=== PATIENT | female | born 1970 | race Caucasian/White ===

== ENCOUNTER → 2021-08-20 13:34 | Outpatient (CLI) | payer BC, SELFPAY ==
--- NOTE | 2021-08-20 13:46 | CT_ITS ---
FINAL REPORT CLINICAL HISTORY: H/O NICOTINE DEPENDENCE, CURRENT SMOKER 2PPD X37 YEARS FINDINGS: Low-Dose Chest CT CTDI vol (mGy): 2.90 DLP (mGy-cm): 81.25 Axial images were obtained from the lung apex to the mid abdomen by computed tomography. Low-dose protocol was utilized. FINDINGS: CHEST: There is no axillary adenopathy. There is no hilar or mediastinal adenopathy. The heart is proper size. There is moderate to severe left coronary artery calcification. There is no pericardial or pleural effusion. Limited images of the upper abdomen are unremarkable. Lung window images demonstrate mild diffuse bronchial wall thickening consistent with bronchitis. There are widespread 5 mm or less bilateral pulmonary nodules that are nonspecific and favored to be inflammatory. A 5 mm nodule is seen in the right lower lobe on image 36. IMPRESSION: Lung RADS category 2S. Recommend 12 month follow-up low-dose chest CT. Modifier S: Moderate to severe left coronary artery calcification. Reviewed, Interpreted and Dictated by Alo Vitale III, MD Transcribed by Nikolay Bentley Authenticated and [facility]
== END ==
PROVIDERS: PCP Family Medicine; Visit Provider Family Medicine
DX: Z87.891 Personal history of nicotine dependence (principal); Z12.2 Encounter for screening for malignant neoplasm of respiratory organs
CPT/HCPCS: 71271

== ENCOUNTER → 2021-08-30 07:43 | Outpatient (CLI) | payer SELFPAY ==
--- NOTE | 2021-08-30 07:49 | CT_ITS ---
FINAL REPORT CLINICAL HISTORY: screening COMPARISON: 08/20/2021 FINDINGS: CT CORONARY CALCIUM SCORE W/O TECHNIQUE: Thin-section axial images were obtained through the heart and coronary arteries per CT coronary calcium score protocol. This study was performed with techniques to keep radiation doses as low as reasonably achievable (ALARA). Individualized dose reduction techniques using automated exposure control or adjustment of mA and/or kV according to the patient's size were employed. FINDINGS: On the axial images, there is calcification within the LAD, circumflex, and right coronary arteries. This gives a coronary artery calcium score of 390.41 based on the Agatston scale. This coronary artery calcium score places the patient within the 98 percentile based on age and gender. The heart size is normal. There is no pleural or pericardial effusion. Limited evaluation of the lungs reveal diffuse bronchial wall thickening consistent with bronchitis. There are several small bilateral pulmonary nodules measuring 5 mm or less, similar to the recent CT. IMPRESSION: Calcification within the LAD, circumflex, and right coronary arteries placing the patient in the 98th percentile. Reviewed, Interpreted and Dictated by Alo Vitale III, MD Transcribed by Molly Donald Authenticated and [facility]
== END ==
PROVIDERS: PCP Family Medicine; Visit Provider Family Medicine
DX: Z13.6 Encounter for screening for cardiovascular disorders (principal); E78.2 Mixed hyperlipidemia; I10 Essential (primary) hypertension; F17.210 Nicotine dependence, cigarettes, uncomplicated
CPT/HCPCS: 75571

== ENCOUNTER → 2023-01-16 07:22 | Outpatient (CLI) | payer BC, SELFPAY ==
--- NOTE | 2023-01-16 07:26 | CT_ITS ---
FINAL REPORT TECHNIQUE: Thin section axial images were obtained through the lungs using a low-dose technique per lung cancer screening protocol. Reconstruction images were obtained using the axial data. Exam was performed using dose reduction technique. CLINICAL HISTORY: H/O TOBACCO USE former smoker, quit 1 year ago 2ppd x 32 years COMPARISON: 08/20/2021 FINDINGS: CTDLvol: 2.9 DLP: 98.47 Former smoker, quit 1 year ago, 52-year-old female 64 pack year history Lungs: There is a stable left upper lobe 4 mm nodule seen in image #16. There are multiple additional bilateral scattered nodules, all stable. No new nodules are identified, and no evidence of consolidation is noted. Lymph nodes: There are stable but mildly prominent subcarinal and AP window nodes. Mediastinum: Heart size is normal. Pleura/pericardium: No pleural or pericardial effusion. Other: Coronary artery calcifications are noted, stable. IMPRESSION: No new nodules or areas of consolidation are visualized. The S designation is given for coronary artery disease. Lung RADS: 2S Recommendation: 12-month LDCT Reviewed, Interpreted and Dictated by Caitlin Gill MD Transcribed by Andria Bland Authenticated and [facility]
== END ==
PROVIDERS: PCP Family Medicine; Visit Provider Family Medicine
DX: Z87.891 Personal history of nicotine dependence (principal); Z12.2 Encounter for screening for malignant neoplasm of respiratory organs
CPT/HCPCS: 71271

== ENCOUNTER 2023-12-04 12:52 | Outpatient (CLI) | payer BC, SELFPAY ==
--- NOTE | 2023-12-04 12:57 | CT_ITS ---
FINAL REPORT CLINICAL HISTORY: HX NICOTINE former smoker, quit 2 yrs ago, smoked 1 1/2 pks per day x 33 yrs family hx of lung ca COMPARISON: 01/16/2023 FINDINGS: CTDI vol (mGy): 2.90 DLP: 100.[address] images of the chest were obtained using the low-dose protocol for screening. There is no evidence of mediastinal or hilar mass or adenopathy. No axillary mass or adenopathy is identified. On the lung window images, previously described 4 mm left upper lobe nodule is no longer identified. No new mass or nodule is seen. IMPRESSION: No new mass or nodule. Lung RADS category 2. Recommend 12 month followup low-dose CT for further evaluation. Reviewed, Interpreted and Dictated by Jasen Espinoza MD Transcribed by Soledad Lamas Authenticated and [facility]
== END 2023-12-04 23:59 | disposition home or self-care (01) ==
LOC: RAD 12:52
PROVIDERS: PCP Family Medicine; Visit Provider Family Medicine
DX: Z87.891 Personal history of nicotine dependence (principal)
CPT/HCPCS: 71271

== ENCOUNTER 2024-11-22 15:22 | Outpatient (CLI) | payer BC, SELFPAY ==
--- NOTE | 2024-11-22 | CA_ITS ---
FINAL REPORT TECHNIQUE: Graded compression, spectral analysis and ultrasound images of the venous system of the right upper extremity were obtained. CLINICAL HISTORY: Distal right wrist/arm pain. Denies trauma or venipuncture. HTN, HLD, DM. Woke up 4 days ago with pain. FINDINGS: The right jugular vein, subclavian vein, axillary vein, brachial vein, cephalic vein and basilic venous system are normal, fully compressible and demonstrate no evidence of thrombosis. IMPRESSION: No evidence of thrombosis of the venous system of the right upper extremity. Reviewed, Interpreted and Dictated by Jasen Espinoza MD Transcribed by Michaela Mello Authenticated and [facility]
== END 2024-11-22 23:59 | disposition home or self-care (01) ==
LOC: RT 15:22
PROVIDERS: PCP Family Medicine; Referring Provider Family Medicine; Visit Provider Family Medicine
DX: M79.601 Pain in right arm (principal); I10 Essential (primary) hypertension; E78.5 Hyperlipidemia, unspecified; E11.9 Type 2 diabetes mellitus without complications
CPT/HCPCS: 93971